=== PATIENT | male | born 1980 | race Caucasian/White ===

== ENCOUNTER 2021-06-02 10:26 | Emergency (ER) | payer OTHER ==
[~2021-06-02] VITALS: Ht 177.8 cm; Wt 92.4 kg
--- NOTE | 2021-06-02 11:11 | PHYS DOC ---
Past History Past Medical History: No Pertinent History Past Surgical History: No Surgical History Smoking: Non-smoker Alcohol Use: None Drug Use: None General Adult EDM: Chief Complaint: CHEST PAIN HPI: HPI: Patient is a 41-year-old male with no past medical history presenting with chest pain that started 72 hours ago. Pain is sharp and left-sided. Patient says sometimes it does come and go and it is associated with some pain that radiates to the left back and left arm. Patient states that the pain is nonreproducible. Patient denies any shortness of breath or pain on exertion. Patient actually states that the pain feels better after exercise. Patient does state that he is a relatively healthy person and exercises several times a week. Patient denies any family history of heart disease. Patient does state that he is concerned about some sort of antifreeze poisoning because he is noticing some misting in his vehicle that seems to be going on for a few days. Patient does complain of occasional headaches and some spots in his vision but denies any nausea, vomiting, abdominal pain, hemoptysis. Patient does deny any fevers or chills, any calf swelling or tenderness, any syncope, numbness or tingling, shortness of breath. Review of Systems: Review of Systems: Constitutional: Denies fever or chills Eyes: Denies redness or eye pain HENT: Denies nasal congestion or sore throat Respiratory: Denies cough or shortness of breath Cardiovascular: Endorses some left-sided chest pain GI: Denies abdominal pain, nausea, or vomiting : Denies dysuria or hematuria Musculoskeletal: Endorses some left-sided back pain and left-sided arm pain Integument: Denies rash or skin lesions Neurologic: Denies any focal weakness or sensory changes but endorses some occasional headache Complete systems were reviewed and found to be within normal limits, except as documented in this note. Family History: Family History: No family history of heart disease. Current Medications: Current Meds: Current Medications Medications (Trade) Dose Ordered Sig/Jovanny Start Time Stop Time Status Last Admin Dose Admin Aspirin (Mohit Aspirin) 325 mg 1X ONCE 06/02/21 10:45 06/02/21 11:00 DC Allergies: Allergies: Allergies Coded Allergies Type Severity Reaction Last Updated Verified No Known Drug Allergies 06/02/21 No Physical Exam: PE: Constitutional: Well developed, well nourished, no acute distress, non-toxic appearance HENT: Normocephalic, atraumatic Eyes: PERRL, EOMI, conjunctiva normal, no discharge Neck: Normal range of motion, no tenderness, supple Lungs & Thorax: No respiratory distress, equal chest rise and fall Abdomen: Soft, no tenderness Chest: heart is regular rate and rhythm with no murmurs rubs or gallops, no tenderness to palpation Skin: Warm, dry, no erythema, no rash Back: No tenderness, no CVA tenderness Extremities: No tenderness, ROM intact, no edema Neurologic: Alert and oriented X 3, normal motor function, normal sensory function, no focal deficits noted Psychologic: Affect normal, judgment normal EKG: EK: sinus rhythm with a rate of 65 bpm, normal axis, no ST elevations, T waves inverted in lead III, DE 156 ms, QRS 84 ms, QT/QTc 386/402 Radiology/Procedures: Radiology/Procedures: PROCEDURE: CHEST AP ONLY AP chest. HISTORY: Chest pain AP view was taken of the chest. Lungs are free of confluent infiltrates. Heart is normal in size. There is no pneumothorax or pleural effusion. IMPRESSION: 1. No acute infiltrates. Electronically signed by: Juanito Culp MD (06/02/2021 11:14 AM) [id number] DICTATED AND SIGNED BY: JUANITO CULP MD DATE: 06/02/21 1113 Heart Score: C/O Chest Pain: Yes HEART Score for Chest Pain: HEART Score for Chest Pain Response (Comments) Value History Slighlty/Non-Suspicious 0 ECG Normal 0 Age < 45 0 Risk Factors No Risk Factors 0 Troponin < Normal Limit 0 Total 0 Risk Factors: Risk Factors: DM, Current or recent (<one month) smoker, HTN, HLP, family history of CAD, obesity. Risk Scores: Score 0 - 3: 2.5% MACE over next 6 weeks - Discharge Home Score 4 - 6: 20.3% MACE over next 6 weeks - Admit for Clinical Observation Score 7 - 10: 72.7% MACE over next 6 weeks - Early Invasive Strategies Course & Med Decision Making: Course & Med Decision Making 41-year-old healthy male with no past medical history presents today with chest pain that is been going on for about 72 hours. Its on the left side, and sharp and radiates to the left back and left arm. Patient given an aspirin. Patient has no family history of heart disease and no risk factors himself. Patient is healthy and states that he exercises several times a week eats a healthy diet and his normal weight. Patient has a normal EKG with no ST changes. Patient has a Wells score of 0 and a PERC score of 0. Chest x-ray with no acute abnormalities. Patient had a sensitivity troponin of 17 just within the normal limits for male. Patient had a normal anion gap and no nausea, vomiting, altered mental status so less concern for ethylene glycol poisoning at this time. At this point, considering normal labs, ECG and chest x-ray, some concern for costochondritis or GI cause of chest pain, like GERD. Patient advised to return to the emergency department if his chest pain gets any worse. Patient does have a heart score of 0 so is safe for discharge. Patient stable for discharge with outpatient follow-up with PCP. Discussed findings and plan with patient, who acknowledges understanding and agreement. Senthil Disclaimer: Senthil Disclaimer: This electronic medical record was generated, in whole or in part, using a voice recognition dictation system. Departure Departure: Impression: Primary Impression: Chest pain Qualified Codes: R07.9 - Chest pain, unspecified Disposition: HOME / SELF CARE / HOMELESS Condition: STABLE Referrals: LISETTE JACKSON MD (PCP) SOBEIDA ROJAS MD Patient Instructions: Chest Pain (Nonspecific), [id number] LOGAN LAGUNA DO Jun 02, 2021 11:11
[2021-06-02 11:14] LABS: BASO % 1 % (0-3); EOS # 0.1 x10^3/uL (0.0-0.7); EOS % 1 % (0-3); HEMATOCRIT 47.3 % (39.0-53.0); HEMOGLOBIN 16.1 g/dL (13.0-17.5); LYMPH # 1.4 x10^3/uL (1.0-4.8); LYMPH % 24 % (24-48); MEAN CORPUSCULAR HEMOGLOBIN 31 pg (25-35); MEAN CORPUSCULAR HGB CONC 34 g/dL (31-37); MEAN CORPUSCULAR VOLUME 92 fL (79-100); MONO # 0.4 x10^3/uL (0.0-1.1); MONO % 7 % (0-9); NEUT # 4.1 x10^3uL (1.8-7.7); NEUT % 68 % (31-73); PLATELET COUNT 171 x10^3/uL (140-400); RED BLOOD COUNT 5.14 x10^6/uL (4.30-5.70); RED CELL DISTRIBUTION WIDTH 12.9 % (11.5-14.5); WHITE BLOOD COUNT 6.1 x10^3/uL (4.0-11.0)
--- NOTE | 2021-06-02 11:17 | RAD ---
AP chest. HISTORY: Chest pain AP view was taken of the chest. Lungs are free of confluent infiltrates. Heart is normal in size. The re is no pneumothorax or pleural effusion. IMPRESSION: 1. No acute infiltrates. Electronically signed by: Juanito Culp MD (06/02/2021 11:14 AM) [id number]
[2021-06-02 11:23] LABS: CALCIUM 9.7 mg/dL (8.5-10.1); CREATININE 1.1 mg/dL (0.7-1.3); GFR 74.1; POTASSIUM 4.5 mmol/L (3.5-5.1)
[2021-06-02] MEDS: ASPIRIN 325 MG TABLET PO ONE (11:39)
--- NOTE | 2021-06-02 11:39 | EKG ---
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
[2021-06-02 11:40] LABS: ALBUMIN 4.4 g/dL (3.4-5.0); ALBUMIN/GLOBULIN RATIO 1.3 (1.0-1.7); MAGNESIUM 2.2 mg/dL (1.8-2.4); TOTAL BILIRUBIN 0.5 mg/dL (0.2-1.0); TOTAL PROTEIN 7.9 g/dL (6.4-8.2)
[2021-06-02 12:15] LABS: BILIRUBIN,URINE NEG (NEG); CLARITY,URINE CLEAR; COLOR,URINE YELLOW; GLUCOSE,URINE NEG (NEG)
[2021-06-02 12:16] LABS: BACTERIA,URINE 0 /HPF (0-FEW); NITRITE,URINE NEG (NEG); RBC,URINE 0 /HPF (0-2); UROBILINOGEN,URINE 0.2 mg/dL (0.2 mg/dL); WBC,URINE 0 /HPF (0-4)
[2021-06-02 12:34] VITALS: BP 118/76
== END 2021-06-02 12:47 | disposition home or self-care (01) ==
LOC: ER 10:26
DX: R07.89 Other chest pain (principal)
CPT/HCPCS: 36415; 71045; 80053; 81001; 82553; 83690; 83735; 83880; 84484; 85025; 93005; 99285-25